=== PATIENT | female | born 1990 | race Native Hawaiian/Other Pacific Islander ===

== ENCOUNTER 2016-06-09 22:50 | Emergency (ER) | payer OTHER ==
[~2016-06-09] VITALS: Ht 154.9 cm; Wt 102.1 kg
[2016-06-10 00:19] LABS: PLATELET COUNT 312 K/uL (152-353)
== END 2016-06-10 01:19 | disposition home or self-care (01) ==
LOC: ED 22:50
DX: M54.5 Low back pain (principal); N39.0 Urinary tract infection, site not specified
CPT/HCPCS: 81000; 81025; 85027; 99283

== ENCOUNTER 2018-05-11 16:39 | Emergency (ER) | payer OTHER ==
[~2018-05-11] VITALS: Ht 157.5 cm; Wt 121.6 kg
[2018-05-11 19:59] VITALS: BP 129/77; TEMP 98.9
== END 2018-05-11 20:05 | disposition home or self-care (01) ==
LOC: ED 16:39
DX: J02.9 Acute pharyngitis, unspecified (principal); H65.92 Unspecified nonsuppurative otitis media, left ear; J20.9 Acute bronchitis, unspecified
CPT/HCPCS: 87651; 99282

== ENCOUNTER 2020-01-29 13:31 | Emergency (ER) | payer OTHER ==
[~2020-01-29] VITALS: Ht 157.5 cm; Wt 121.6 kg
[2020-01-29 13:40] VITALS: BP 121/70; TEMP 99.1
== END 2020-01-29 14:22 | disposition home or self-care (01) ==
LOC: ED 13:31
DX: J03.90 Acute tonsillitis, unspecified (principal)
CPT/HCPCS: 87651; 99282

== ENCOUNTER 2020-03-21 19:51 | Emergency (ER) | payer OTHER ==
[~2020-03-21] VITALS: Ht 157.5 cm; Wt 124.3 kg
[2020-03-21 19:55] VITALS: BP 131/69; TEMP 98.8
== END 2020-03-21 20:45 | disposition home or self-care (01) ==
LOC: ED 19:51
PROC: 0HQFXZZ Repair Right Hand Skin, External Approach (ICD-10-PCS; principal; 2020-03-21)
DX: S61.011A Laceration without foreign body of right thumb without damage to nail, initial encounter (principal); W26.0XXA Contact with knife, initial encounter; Y92.098 Other place in other non-institutional residence as the place of occurrence of the external cause
CPT/HCPCS: 99282

== ENCOUNTER 2021-02-03 16:28 | Emergency (ER) | payer OTHER ==
[~2021-02-03] VITALS: Ht 154.9 cm; Wt 132.9 kg
[2021-02-03 19:20] VITALS: BP 134/68; TEMP 97.9
== END 2021-02-03 19:20 | disposition home or self-care (01) ==
LOC: ED 16:28
DX: J20.9 Acute bronchitis, unspecified (principal); J32.8 Other chronic sinusitis; Z20.822 Contact with and (suspected) exposure to COVID-19
CPT/HCPCS: 81025; 87502; 87635; 87651; 99283; U0003

== ENCOUNTER 2022-10-27 12:07 | Emergency (ER) | payer OTHER ==
[~2022-10-27] VITALS: Ht 157.5 cm; Wt 132.9 kg
[2022-10-27 12:12] VITALS: BP 138/75; TEMP 98.3
== END 2022-10-27 12:45 | disposition home or self-care (01) ==
LOC: ED 12:07
DX: L03.032 Cellulitis of left toe (principal); S91.332A Puncture wound without foreign body, left foot, initial encounter; X58.XXXA Exposure to other specified factors, initial encounter
CPT/HCPCS: 99282